=== PATIENT | female | born 1995 | race Caucasian/White ===

== ENCOUNTER 2017-06-21 19:27 | Emergency (ER) | payer OTHER ==
[~2017-06-21] VITALS: Ht 172.7 cm; Wt 54.2 kg
[2017-06-21 19:30] VITALS: TEMP 37.1; Ht 172.7 cm; Wt 54.2 kg
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
[2017-06-21] MEDS ORDERED: IBUP-103 PO (20:32)
[2017-06-21] MEDS ORDERED: ROBITUSSIN PO (20:32)
[2017-06-21] MEDS ORDERED: BCPILLS PO (20:32)
[2017-06-21] MEDS ORDERED: CYCL10TA6 PO (20:43)
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
[2017-06-21] MEDS ORDERED: FLEXERIL HOME PACK 10 MG VIAL PO ONE (20:45)
[2017-06-21 21:46] VITALS: BP 134/89; PULSE 98; O2SAT 99
== END 2017-06-21 21:44 | disposition home or self-care (01) ==
LOC: C.EDB 19:29 → C.EDD 21:44
DX: M62.838 Other muscle spasm (principal); V49.40XA Driver injured in collision with unspecified motor vehicles in traffic accident, initial encounter; Y93.89 Activity, other specified; Y99.8 Other external cause status